=== PATIENT | female | born 1990 | race Caucasian/White ===

== ENCOUNTER 2021-06-13 02:32 | Inpatient (IN) | payer BC ==
[2021-06-13] MEDS ORDERED: Penicillin G Potassium 5 MILL.UNITS VIAL ONE (03:00)
[2021-06-13] MEDS ORDERED: NS w/ Oxytocin 30 units 0 ML ONE (03:00)
[2021-06-13] MEDS ORDERED: Ibuprofen 800 MG TAB PO PRN (03:05)
[2021-06-13] MEDS ORDERED: Lidocaine 1% (PF) 30 ML VIAL SC PRN (03:05)
[2021-06-13] MEDS ORDERED: Promethazine HCl 25 MG/ML VIAL IM PRN ×2 (03:05→06:03)
[2021-06-13] MEDS ORDERED: Misoprostol 200 MCG TAB PR PRN (03:05)
[2021-06-13] MEDS ORDERED: Acetaminophen 500 MG TAB PO PRN (03:05)
[2021-06-13] MEDS ORDERED: hydrALAZINE 20 MG/ML VIAL SLOW IVP PRN ×2 (03:05→05:49)
[2021-06-13] MEDS ORDERED: Butorphanol Tartrate 1 MG/ML VIAL SLOW IVP PRN ×2 (03:05→18:15)
[2021-06-13] MEDS ORDERED: Ondansetron PF 4 MG/2 ML Vial IVP PRN ×2 (03:05→06:03)
[2021-06-13 03:11] VITALS: BMI 33.0
[2021-06-13] MEDS ORDERED: Lactated Ringer's 1,000 ML IV SCH (03:15)
[2021-06-13] MEDS ORDERED: Penicillin G Potassium 5 MILL.UNITS in Sodium Chloride 0.9% 100 ML IVPB SCH (03:15)
[2021-06-13 03:28] LABS: Hemoglobin 10.9 g/dL (12.0-15.5); Mean Corpuscular HGB CONC 30.8 g/dL (32.0-36.0); Mean Corpuscular Hemoglobin 23.5 pg (27.0-33.0); Mean Corpuscular Volume 76.5 fl (81.6-98.3); Mean Platelet Volume 10.6 fl (7.4-10.4); Platelet Count 283 10x3/uL (150-450); RBC Distribution Width 16.4 % (11.5-14.5); Red Blood Cell (RBC) Count 4.63 10x6/uL (3.90-5.03); White Blood Cell (WBC) Count 11.3 10x3/uL (3.5-10.5)
[2021-06-13] MEDS ORDERED: Ondansetron PF 4 MG/2 ML Vial ONE ×2 (03:29→04:41)
[2021-06-13] MEDS ORDERED: Penicillin G 2.5 MILL.units 2.5 MILL.UNITS in Premix Bag 1 BAG IVPB SCH (03:30)
[2021-06-13] MEDS ORDERED: NS w/ Oxytocin 30 units 500 ML IV SCH ×2 (03:30)
[2021-06-13] MEDS ORDERED: Azithromycin 500 MG VIAL ONE (04:29)
[2021-06-13] MEDS ORDERED: Terbutaline Sulfate 1 MG/ML VIAL ONE (04:31)
[2021-06-13 04:33] LABS: Hep B Surf Ag Non-Reactive S/CO (NonReactive)
[2021-06-13 04:34] LABS: Syphilis Antibody Nonreactive (Nonreactive); Syphilis Antibody Index 0.05 S/CO (<1.00 Non-Reactive)
[2021-06-13] MEDS ORDERED: Carboprost 250 MCG/ML AMP ONE (04:34)
[2021-06-13 04:39] LABS: HBSAg Index 0.18 S/CO (0-0.99)
[2021-06-13] MEDS ORDERED: Morphine PF 10 MG/10 ML VIAL ONE (04:41)
[2021-06-13] MEDS ORDERED: Fentanyl 100 MCG/2 ML VIAL ONE (04:41)
[2021-06-13] MEDS ORDERED: Dexamethasone 4 mg/ml Vial ONE (04:41)
[2021-06-13] MEDS ORDERED: Oxytocin 10 UNITS/ML VIAL ONE ×2 (04:41→05:05)
[2021-06-13] MEDS ORDERED: Ketorolac Tromethamine 30 MG/ML VIAL ONE (04:41)
[2021-06-13] MEDS ORDERED: Phenylephrine 40 MG/NS 250 ML 250 ML ONE (04:41)
[2021-06-13 05:23] LABS: pH (Cord, venous) 7.239 (7.250-7.350)
[2021-06-13] MEDS ORDERED: HYDROcodone/Acetaminophen 5/325 mg Tablet PO PRN ×2 (05:49→18:15)
[2021-06-13] MEDS ORDERED: diphenhydrAMINE 25 MG CAP PO PRN (05:49)
[2021-06-13] MEDS ORDERED: Acetaminophen 325 MG TAB PO PRN (05:49)
[2021-06-13] MEDS ORDERED: Boostrix 0.5 ML (Tdap) VIAL IM ONE (05:49)
[2021-06-13] MEDS ORDERED: Ibuprofen 800 MG TAB PO SCH (06:00)
[2021-06-13] MEDS ORDERED: Fentanyl 100 MCG/2 ML VIAL SLOW IVP PRN (06:03)
[2021-06-13] MEDS ORDERED: Naloxone HCl 0.4 mg/ml Vial IV PRN (06:03)
[2021-06-13] MEDS ORDERED: diphenhydrAMINE 50 MG/ML VIAL IVP PRN (06:03)
[2021-06-13] MEDS ORDERED: Hydrocerin (Eucerin) Cream 120 gm Jar TOP PRN (06:03)
[2021-06-13] MEDS ORDERED: Naloxone HCl 0.4 mg/ml Vial IVP PRN ×2 (06:03)
[2021-06-13] MEDS ORDERED: Promethazine HCl 25 MG SUPP PR PRN (06:03)
[2021-06-13] MEDS ORDERED: Meperidine HCl/PF 25 MG/ML VIAL SLOW IVP PRN (06:03)
[2021-06-13] MEDS ORDERED: Ondansetron HCl/PF 4 MG/2 ML Vial IVP PRN (06:03)
[2021-06-13] MEDS ORDERED: Communication Order-Pharmacy FS SCH (06:15)
[2021-06-13] MEDS ORDERED: Methylergonovine 0.2 MG/ML VIAL ONE (07:06)
[2021-06-13] MEDS ORDERED: Methylergonovine 0.2 MG/ML VIAL IM PRN (07:08)
[2021-06-13] MEDS: Simethicone Chewable 80 MG TAB PO SCH ×3 (09:19→21:54)
[2021-06-13] MEDS: Docusate Calcium (SURFAK) 240 MG CAP PO SCH ×2 (09:48→21:59)
[2021-06-13] MEDS: Ketorolac Tromethamine 30 MG/ML VIAL IVP SCH ×3 (10:14→21:54)
[2021-06-13 10:26] LABS: SARS-CoV-2 NAA Rapid Test Not Detected (NotDetected)
[2021-06-13] MEDS ORDERED: Ketorolac Tromethamine 30 MG/ML VIAL IVP SCH (12:00)
[2021-06-14] MEDS: Ketorolac Tromethamine 30 MG/ML VIAL IVP SCH (03:44)
[2021-06-14] MEDS: Simethicone Chewable 80 MG TAB PO SCH ×3 (05:39→21:16)
[2021-06-14 07:33] LABS: Hemoglobin 8.6 g/dL (12.0-15.5); Mean Corpuscular HGB CONC 31.2 g/dL (32.0-36.0); Mean Corpuscular Hemoglobin 24.2 pg (27.0-33.0); Mean Corpuscular Volume 77.7 fl (81.6-98.3); Mean Platelet Volume 11.3 fl (7.4-10.4); Platelet Count 265 10x3/uL (150-450); RBC Distribution Width 16.3 % (11.5-14.5); Red Blood Cell (RBC) Count 3.55 10x6/uL (3.90-5.03); White Blood Cell (WBC) Count 13.9 10x3/uL (3.5-10.5)
[2021-06-14] MEDS: Docusate Calcium (SURFAK) 240 MG CAP PO SCH ×2 (10:18→21:17)
[2021-06-14] MEDS: Ibuprofen 800 MG TAB PO SCH ×2 (12:04→21:16)
[2021-06-14] MEDS ORDERED: Ibuprofen 800 MG TAB PO PRN (14:00)
[2021-06-15] MEDS: Ibuprofen 800 MG TAB PO SCH (05:09)
[2021-06-15] MEDS: Simethicone Chewable 80 MG TAB PO SCH (05:09)
[2021-06-15 07:49] VITALS: BP 127/77; TEMP 98.6
[2021-06-15] MEDS: Docusate Calcium (SURFAK) 240 MG CAP PO SCH (08:57)
== END 2021-06-15 12:26 | disposition home or self-care (01) | DRG 786 ==
LOC: CSHLD/OP 02:32 → CSHLD 02:33 → CSHPED 08:39
PROVIDERS: ADMIT Obstetrics & Gynecology; ATTEND Obstetrics & Gynecology
PROC: 10D00Z1 Extraction of Products of Conception, Low, Open Approach (ICD-10-PCS; principal; 2021-06-13)
DX: O76 Abnormality in fetal heart rate and rhythm complicating labor and delivery (principal); O45.93 Premature separation of placenta, unspecified, third trimester; Z20.822 Contact with and (suspected) exposure to COVID-19; O34.211 Maternal care for low transverse scar from previous cesarean delivery; O48.0 Post-term pregnancy; Z3A.41 41 weeks gestation of pregnancy; Z37.0 Single live birth; Z91.040 Latex allergy status; Z88.8 Allergy status to other drugs, medicaments and biological substances
CPT/HCPCS: 36415; 51702; 82805; 85027; 86780; 86850; 86900; 86901; 87340; 88307; 99285; J1100; J1885; J2210; J2274; J2405; J2540; J2590; J3010; J3105; U0002